=== PATIENT | female | born 1960 ===

== ENCOUNTER 2018-01-05 19:54 | Emergency (ER) | payer MEDICARE, MEDICAID ==
[2018-01-05 19:54] VITALS: BMI 36.7
[2018-01-05 20:03] VITALS: O2SAT 98
--- NOTE | 2018-01-05 20:15 | ED PDOC ---
HPI: General Adult Time Seen by Provider: 01/05/18 20:12 Chief Complaint (Nursing): Flu-like Symptoms Chief Complaint (Provider): flu like symptoms History Per: Patient, Family (Patient's daughter at bedside is translating for patient in Chilean) Additional Complaint(s): 57-year-old female presents with fever, chills, body aches and cough that started yesterday. Patient returned from [place] 2 days ago. 3 of her grandchildren are being treated for the flu at present. Patient denies chest pain or shortness of breath. She took TheraFlu earlier which did not help. PMD: Geovanna Rae MD Past Medical History Reviewed: Historical Data, Nursing Documentation, Vital Signs Vital Signs: Last Vital Signs Temp 99 F 01/05/18 20:00 Pulse 88 01/05/18 20:00 Resp 18 01/05/18 20:00 BP 131/81 01/05/18 20:00 Pulse Ox 98 01/06/18 00:08 - Medical History PMH: Arthritis, Asthma, Gastritis, HTN, Hypercholesterolemia, Hypothyroidism, Kidney Stones - Surgical History Surgical History: Appendectomy, Cholecystectomy, Endoscopy Other surgeries: nephrectomy - Family History Family History: States: No Known Family Hx - Living Arrangements Living Arrangements: With Family - Social History Current smoker - smoking cessation education provided: No Alcohol: None Drugs: Denies - Home Medications Home Medications: Ambulatory Orders Medication Instructions Recorded Albuterol Sulfate [Albuterol 0.09 mg IH PRN PRN 08/12/14 Sulfate Hfa] Amlodipine Besylate 5 mg PO DAILY 08/12/14 Baclofen 10 mg PO DAILY 08/12/14 Dicyclomine [Bentyl] 10 mg PO PRN PRN 08/12/14 Gabapentin [Neurontin] 300 mg PO DAILY 08/12/14 Meloxicam 15 mg PO DAILY 08/12/14 Mometasone [Asmanex Twisthaler] 1 puff IH PRN PRN 08/12/14 Montelukast Sodium 10 mg PO DAILY 08/12/14 Omeprazole [Omeprazole D/R] 20 mg PO DAILY 08/12/14 Oxybutynin Chloride [Oxybutynin ER] 10 mg PO DAILY 08/12/14 Pravastatin Sodium 20 mg PO DAILY 08/12/14 Levothyroxine [Synthroid] 0.075 mg PO DAILY 08/14/14 oxyCODONE/Acetaminophen [Percocet 1 ea PO Q6 PRN #20 tab 10/21/14 5/325 mg Tab] Famotidine [Pepcid] 20 mg PO BID #28 tab 04/29/15 Ondansetron ODT [Zofran ODT] 4 mg PO QID #20 odt 04/29/15 Meclizine [Antivert] 12.5 mg PO TID PRN #15 tab 06/27/16 Ibuprofen [Motrin] 600 mg PO TID PRN #30 tab 12/28/16 Albuterol HFA [Ventolin HFA 90 1 puff IH ASDIR #1 unit 01/05/18 mcg/actuation (8 g)] Azithromycin [Zithromax] 250 mg PO DAILY #6 tab 01/05/18 Benzonatate 200 mg PO TID PRN #20 capsule 01/05/18 Oseltamivir Phosphate [Tamiflu] 75 mg PO BID #9 capsule 01/05/18 - Allergies Allergies/Adverse Reactions: Allergies Allergy/AdvReac Type Severity Reaction Status Date / Time pineapple Allergy ANAPHYLAXIS Verified 01/05/18 19:59 Review of Systems ROS Statement: Except As Marked, All Systems Reviewed And Found Negative Constitutional: Positive for: Fever, Chills, Other (body aches) Cardiovascular: Negative for: Chest Pain Respiratory: Positive for: Cough. Negative for: Shortness of Breath Gastrointestinal: Negative for: Vomiting, Abdominal Pain, Diarrhea Neurological: Positive for: Headache. Negative for: Dizziness Physical Exam - Reviewed Nursing Documentation Reviewed: Yes Vital Signs Reviewed: Yes - Physical Exam Appears: Positive for: Well, Non-toxic, No Acute Distress Skin: Negative for: Rash Eye Exam: Positive for: Normal appearance ENT: Positive for: Normal ENT Inspection Cardiovascular/Chest: Positive for: Regular Rate, Rhythm Respiratory: Positive for: Normal Breath Sounds, Rhonchi. Negative for: Wheezing, Respiratory Distress Gastrointestinal/Abdominal: Positive for: Soft. Negative for: Tenderness Extremity: Positive for: Normal ROM Neurologic/Psych: Positive for: Alert, Oriented - ECG O2 Sat by Pulse Oximetry: 98 Pulse Ox Interpretation: Normal - Other Rad CXR X-Ray: Interpreted by Me, Viewed By Me X-Ray Interpretation: no acute finding Nebulizer Treatments/Peak Flow - Duonebs Number of Bronchodilator Doses given?: 1 (duoneb) Medical Decision Making Medical Decision Makin57 year old with flu like symptoms Plan: CXR PO tylenol and motrin PO tamiflu initial dose Fluid bolus Patient states she feels better after meds given in ED. Patient given prescriptions for Tamiflu, Zithromax, Tessalon Perles and Ventolin inhaler. Advised NSAIDs for body aches and fever. Advised fluids, rest and follow-up with primary doctor in 2-3 days. Disposition - Clinical Impression Clinical Impression: Influenza-like symptoms, Upper respiratory infection - Patient ED Disposition Is Patient to be Admitted: No Counseled Patient/Family Regarding: Studies Performed, Diagnosis, Need For Followup, Rx Given - Disposition Referrals: Geovanna Rae MD [Family Provider] - Disposition: Routine/Home Disposition Time: 21:41 Condition: STABLE Additional Instructions: TAKE RX MEDS DIRECTED TYLENOL EVERY 4 HRS AND MOTRIN EVERY 6 HRS FOR FEVER AND BODY ACHES DRINK PLENTY OF FLUIDS AND GET PLENTY OF REST FOLLOW UP IN 2-3 DAYS WITH PRIMARY CARE DOCTOR Prescriptions: Albuterol HFA [Ventolin HFA 90 mcg/actuation (8 g)] 1 puff IH ASDIR #1 unit Azithromycin [Zithromax] 250 mg PO DAILY #6 tab Benzonatate 200 mg PO TID PRN #20 capsule PRN Reason: Cough Oseltamivir Phosphate [Tamiflu] 75 mg PO BID #9 capsule Instructions: Viral Upper Respiratory Infection, Adult (DC), Bacterial Upper Respiratory Infection, Adult Forms: [employer] (Chilean) Print Language: ALBANIAN
[2018-01-05] MEDS ORDERED: Albuterol-Ipratrop 3 mg / 0.5 (3 ml) UD INH STA (20:40)
[2018-01-05] MEDS ORDERED: Sodium Chloride 0.9% 1,000 ML IV STA (21:42)
[2018-01-06 00:09] VITALS: BP 122/81; PULSE 86; RESP 20; TEMP 99.7
--- NOTE | 2018-01-06 11:14 | RAD ---
HISTORY: cough COMPARISON: No prior. TECHNIQUE: Chest PA and lateral FINDINGS: LUNGS: Mild bibasilar atelectasis likely due to poor inspiration with low lung volumes. . There is a 4 mm rounded nodular density left lateral mid to lower lung field seen overlying the left anterior 4th rib and left posterior 7th rib. Another small nodular density measuring approximately 3 mm left upper lung field which could represent a granuloma or possibly vessel on end artifact at the. Followup nonemergent CT scan of the chest recommended further evaluation. PLEURA: No significant pleural effusion identified. No pneumothorax apparent. CARDIOVASCULAR: Heart size is upper limits of normal. OSSEOUS STRUCTURES: No significant abnormalities. VISUALIZED UPPER ABDOMEN: Metallic surgical clips again seen in the upper abdomen bilaterally. Clinical correlation with surgical history. OTHER FINDINGS: None. IMPRESSION: Mild bibasilar atelectasis. There is a small nodular density left lateral lower lung zone and another nodular density left upper lobe as above. Recommend follow-up nonemergent CT scan chest further evaluation of the small nodules Note this report was placed in PA review folder for followup
== END 2018-01-06 00:10 | disposition home or self-care (01) ==
LOC: H.ER 19:54
DX: J11.1 Influenza due to unidentified influenza virus with other respiratory manifestations (principal); J06.9 Acute upper respiratory infection, unspecified; E03.9 Hypothyroidism, unspecified; E78.00 Pure hypercholesterolemia, unspecified; I10 Essential (primary) hypertension; J45.909 Unspecified asthma, uncomplicated
CPT/HCPCS: 71046; 94640; 99283; J7040

== ENCOUNTER 2018-12-15 19:41 | Emergency (ER) | payer MEDICARE, MEDICAID ==
[2018-12-15 19:42] VITALS: BMI 36.7
[2018-12-15] MEDS ORDERED: Iohexol 240 (50 ml) PO STA (20:13)
[2018-12-15] MEDS ORDERED: Sodium Chloride 0.9% 1,000 ML IV STA (20:15)
[2018-12-15] MEDS ORDERED: Iohexol 240 (50 ml) ONE (20:21)
--- NOTE | 2018-12-15 21:09 | ED PDOC ---
HPI: Abdomen Time Seen by Provider: 12/15/18 19:51 Chief Complaint (Nursing): Abdominal Pain Chief Complaint (Provider): Abdominal Pain History Per: Patient History/Exam Limitations: no limitations Onset/Duration Of Symptoms: Days (today) Additional Complaint(s): 58 y/o female with history of hypertension, gastritis, hypercholesterolemia, and multiple abdominal surgeries, presents to the ED complaining of vomiting onset earlier today. Patient reports she had abdominal pain this morning and developed intractable non-bloody non-bilious vomiting associated with body aches and chills. Patient denies diarrhea. She is also reporting dysuria and frequency for the past x3 days. No other medical complaints. Past Medical History Reviewed: Historical Data, Nursing Documentation, Vital Signs Vital Signs: Last Vital Signs Temp 97.7 F 12/15/18 19:44 Pulse 75 12/15/18 19:44 Resp BP 114/76 12/15/18 19:44 Pulse Ox 100 12/15/18 19:44 - Medical History PMH: Arthritis, Asthma, Gastritis, Gall Bladder Disease, HTN, Hypercholesterolemia, Hypothyroidism, Kidney Stones - Surgical History Surgical History: Appendectomy, Cholecystectomy, Endoscopy - Family History Family History: States: No Known Family Hx, Unknown Family Hx - Social History Current smoker - smoking cessation education provided: No Alcohol: None - Home Medications Home Medications: Ambulatory Orders Medication Instructions Recorded RX: Albuterol Sulfate [Albuterol 0.09 mg IH PRN PRN 08/12/14 Sulfate Hfa] RX: Amlodipine Besylate 5 mg PO DAILY 08/12/14 RX: Baclofen 10 mg PO DAILY 08/12/14 RX: Dicyclomine [Bentyl] 10 mg PO PRN PRN 08/12/14 RX: Gabapentin [Neurontin] 300 mg PO DAILY 08/12/14 RX: Meloxicam 15 mg PO DAILY 08/12/14 RX: Mometasone [Asmanex Twisthaler] 1 puff IH PRN PRN 08/12/14 RX: Montelukast Sodium 10 mg PO DAILY 08/12/14 RX: Omeprazole [Omeprazole D/R] 20 mg PO DAILY 08/12/14 RX: Oxybutynin Chloride 10 mg PO DAILY 08/12/14 [Oxybutynin ER] RX: Pravastatin Sodium 20 mg PO DAILY 08/12/14 RX: Levothyroxine [Synthroid] 0.075 mg PO DAILY 08/14/14 oxyCODONE/Acetaminophen [Percocet 1 ea PO Q6 PRN #20 tab 10/21/14 5/325 mg Tab] Famotidine [Pepcid] 20 mg PO BID #28 tab 04/29/15 Ondansetron ODT [Zofran ODT] 4 mg PO QID #20 odt 04/29/15 RX: Meclizine [Antivert] 12.5 mg PO TID PRN #15 tab 06/27/16 Ibuprofen [Motrin] 600 mg PO TID PRN #30 tab 12/28/16 Albuterol HFA [Ventolin HFA 90 1 puff IH ASDIR #1 unit 01/05/18 mcg/actuation (8 g)] Azithromycin [Zithromax] 250 mg PO DAILY #6 tab 01/05/18 Oseltamivir Phosphate [Tamiflu] 75 mg PO BID #9 capsule 01/05/18 RX: Benzonatate 200 mg PO TID PRN #20 capsule 01/05/18 - Allergies Allergies/Adverse Reactions: Allergies Allergy/AdvReac Type Severity Reaction Status Date / Time pineapple Allergy ANAPHYLAXIS Verified 01/05/18 19:59 Review of Systems ROS Statement: Except As Marked, All Systems Reviewed And Found Negative (as per HPI otherwise negative) Constitutional: Positive for: Chills, Malaise (body aches) Gastrointestinal: Positive for: Vomiting, Abdominal Pain. Negative for: Diarrhea Genitourinary Female: Positive for: Dysuria, Frequency Physical Exam - Reviewed Nursing Documentation Reviewed: Yes Vital Signs Reviewed: Yes - Physical Exam Appears: Positive for: In Acute Distress (mild painful distress) Head Exam: Positive for: ATRAUMATIC, NORMOCEPHALIC Skin: Positive for: Warm, Dry Eye Exam: Positive for: EOMI, PERRL ENT: Negative for: Pharyngeal Erythema, Tonsillar Exudate Neck: Positive for: Painless ROM, Supple Cardiovascular/Chest: Positive for: Regular Rate, Rhythm. Negative for: Murmur Respiratory: Positive for: Normal Breath Sounds. Negative for: Respiratory Distress Gastrointestinal/Abdominal: Positive for: Bowel Sounds (hypoactive), Tenderness (diffuse). Negative for: Mass, Guarding, Rebound Back: Positive for: Normal Inspection. Negative for: Muscle Spasm Extremity: Positive for: Normal ROM. Negative for: Deformity Lymphatic: Negative for: Adenopathy Neurologic/Psych: Positive for: Alert. Negative for: Motor/Sensory Deficits - Laboratory Results Result Diagrams: 12/15/18 21:20 12/15/18 21:20 - ECG O2 Sat by Pulse Oximetry: 100 (RA) Pulse Ox Interpretation: Normal Medical Decision Making Medical Decision Making: Time: 20:13 Initial Impression: abdominal pain and vomiting Differential included but not limited to obstruction, dehydration, electrolyte abnormality, viral illness Initial Plan: CT Abd pelvis CMP Lactic acid Lipase ED Urine CBC w/ diff IV fluids Omnipaque Pepcid Zofran RNs unable to place IV or obtain labs RIGHT EJ 20g saline lock placed by me under sterile conditions. Labs/blood cultures drawn and flushed easily with 10cc normal saline. Time: Patient was endorsed to Dr. Shena Pepe, pending CT, reassessment and final disposition. Scribe Attestation: Documented by Jaguar Merrill acting as a scribe for Delmis Villavicencio MD. Provider Scribe Attestation: All medical record entries made by the Scribe were at my direction and personally dictated by me. I have reviewed the chart and agree that the record accurately reflects my personal performance of the history, physical exam, medical decision making, and the department course for this patient. I have also personally directed, reviewed, and agree with the discharge instructions and disposition. Disposition - Clinical Impression Clinical Impression: Enteritis - Disposition Disposition: Transfer of Care Disposition Time: 00:00 Condition: IMPROVED Additional Instructions: Follow up with primary medical doctor and telephone sales representative. Return to the emergency department if symptoms return or if you develop new symptoms such as decreased SOB, weakness, or chest pain. Drink more water to stay hydrated while symptoms last. Instructions: Colitis (DC) Forms: [employer] (Mongolian), [employer] (Estonian) Print Language: MAURITIAN
[2018-12-15 21:25] LABS: BASO % 0.2 % (0.0-2.0); EOS % 0.1 % (0.0-4.0); HEMOGLOBIN 12.9 g/dL (12.0-16.0); LYMPH # 0.8 K/uL (1.0-4.3); LYMPH % 12.8 % (20.0-40.0); MEAN CELL VOLUME 78.6 fl (81.0-99.0); MEAN CORPUSCULAR HEMOGLOBIN 25.7 pg (27.0-31.0); MEAN CORPUSCULAR HGB CONC 32.7 g/dL (33.0-37.0); MEAN PLATELET VOLUME 7.9 fl (7.2-11.7); MONO # 0.2 K/uL (0.0-0.8); MONO % 3.6 % (0.0-10.0); NEUT # 5.3 K/uL (1.8-7.0); NEUT % 83.3 % (50.0-75.0); RBC 5.03 Mil/uL (3.80-5.20); RED CELL DISTRIBUTION WIDTH 15.7 % (11.5-14.5); WHITE BLOOD COUNT 6.4 K/uL (4.8-10.8)
[2018-12-15 21:34] LABS: ALB/GLOB RATIO 1.3 (1.0-2.1); ALBUMIN 4.5 g/dL (3.5-5.0); ALT/SGPT 50 U/L (9-52); AST/SGOT 39 U/L (14-36); BLOOD UREA NITROGEN 17 mg/dl (7-17); CALCIUM 9.5 mg/dL (8.4-10.2); GFR NON-AFRICAN AMERICAN > 60; LIPASE 137 U/L (23-300)
[2018-12-15 23:42] LABS: SQUAMOUS EPITHIAL 1 /hpf (0-5); URINE BILIRUBIN NEGATIVE (NEGATIVE); URINE BLOOD SMALL (NEGATIVE); URINE CLARITY CLEAR (Clear); URINE COLOR STRAW (YELLOW); URINE GLUCOSE (UA) NEG (NEGATIVE); URINE LEUKOCYTE ESTERASE NEG Leu/uL (Negative); URINE PROTEIN NEGATIVE (NEGATIVE); URINE UROBILINOGEN 0.2-1.0 mg/dL (0.2-1.0)
--- NOTE | 2018-12-15 23:48 | ED PDOC ---
- Laboratory Results Result Diagrams: 12/15/18 21:20 12/15/18 21:20 Lab Results: Total Bilirubin 0.4 mg/dl (0.2-1.3) 12/15/18 21:20 AST 39 U/L (14-36) H 12/15/18 21:20 ALT 50 U/L (9-52) 12/15/18 21:20 Alkaline Phosphatase 75 U/L (38-126) 12/15/18 21:20 Total Protein 7.9 G/DL (6.3-8.2) 12/15/18 21:20 Albumin 4.5 g/dL (3.5-5.0) 12/15/18 21:20 Globulin 3.4 gm/dL (2.2-3.9) 12/15/18 21:20 Albumin/Globulin Ratio 1.3 (1.0-2.1) 12/15/18 21:20 Lipase 137 U/L (23-300) 12/15/18 21:20 - ECG O2 Sat by Pulse Oximetry: 100 (RA) Medical Decision Making Medical Decision Making: Time: 0000 Patient care was endorsed by Dr. Delmis Villavicencio, pending CT, PO challenge, UA, reassessment and final disposition. Patient will most likely be discharged home. Time: 0148 CT FINDINGS: LUNG BASES: There is mild atelectasis at the lung bases, right greater than left. LIVER: Unremarkable. GALLBLADDER AND BILE DUCTS: There has been a cholecystectomy. The common bile duct is prominent measuring approximately 10 mm. However, this may be normally post cholecystectomy patient. Please correlate clinically. PANCREAS: There is a 5 mm calcification in the pancreatic head, nonspecific. SPLEEN: Unremarkable. ADRENAL GLANDS: Unremarkable. KIDNEYS, URETERS, AND BLADDER: There has been a left nephrectomy. The right kidney has an unremarkable appearance aside from a sub centimeter hypodensity at the midpole which is too small to adequately characterize. No right hydronephrosis. STOMACH AND BOWEL: Stomach is predominately decompressed. There are postsurgical changes of the stomach. There is mild constipation in the colon. No evidence for small bowel obstruction. APPENDIX: The appendix is surgically absent. PERITONEUM: No free fluid. No free air. LYMPH NODES: No lymphadenopathy is evident. REPRODUCTIVE: Unremarkable as visualized. VASCULATURE: No evidence of abdominal aortic aneurysm. BONES: There are mild multilevel degenerative spine changes. IMPRESSION: 1. The common bile duct is prominent measuring approximately 10 mm. However, this may be normal in a post cholecystectomy patient. Please correlate clinically. 2. Status post left nephrectomy. 3. Stomach is predominately decompressed. There are postsurgical changes of the stomach. 4. There is mild constipation in the colon. 5. Additional an incidental findings as described, please see comments. Time: 226 Patient failed PO challenge and will be given more zofran. -- Zofran 4 mg IVP Time: 614 Patient's symptoms have improved and is tolerating PO. Patient will follow up with gastroenterology and PMD. Scribe Attestation: Documented by Dano Andrea, acting as a scribe for Shena Pepe MD. Provider Scribe Attestation: All medical record entries made by the Scribe were at my direction and personally dictated by me. I have reviewed the chart and agree that the record accurately reflects my personal performance of the history, physical exam, medical decision making, and the department course for this patient. I have also personally directed, reviewed, and agree with the discharge instructions and disposition. Disposition - Clinical Impression Clinical Impression: Enteritis - Disposition Referrals: Geraldo Barnett MD, PhD [Staff Provider] - Condition: IMPROVED Additional Instructions: Follow up with primary medical doctor and drivers license examiner. Return to the emergency department if symptoms return or if you develop new symptoms such as decreased SOB, weakness, or chest pain. Drink more water to stay hydrated while symptoms last. Instructions: Colitis (DC) Forms: [employer] (Persian), [employer] (Kazakh) Print Language: SOUTH AFRICAN
[2018-12-16] MEDS ORDERED: Iodixanol 320 MG/ML 100 ML BOTTLE IV ONE (00:37)
--- NOTE | 2018-12-16 04:17 | CP.PCM.CON ---
<Best Antoine - Last Filed: 12/16/18 08:39> History of Present Illness - History of Present Illness History of Present Illness: 58F PMHx HTN, asthma, pre diabetes, obesity, presents to [facility] ED with complaints of nausea/vomiting. Patient states she's been having n/v since Monday. Patient states nausea was worse today. Reports developing dizziness, headache, nausea/vomiting, diarrhea, mild abdominal pain, and palpitations about 30 minutes after consuming food. Patient has history of laparoscopic sleeve gastrectomy. She states shes was having soup with spaghetti and carbohydrate rich foods. PMH: as stated above PSurgHx: laparoscopic sleeve gastrectomy, laparoscopic cholecystectomy, left nephrectomy, b/l knee replacements Allergies: Pineapple Fam Hx: non-contributory Review of Systems - Review of Systems Review of Systems: 10 pt ROS negative, except as stated in HPI Past Patient History - Past Medical History & Family History Past Medical History?: Yes - Past Social History Alcohol: None - CARDIAC Hx Hypercholesterolemia: Yes Hx Hypertension: Yes - PULMONARY Hx Asthma: Yes - NEUROLOGICAL Hx Neurological Disorder: No - HEENT Hx HEENT Problems: Yes (GLASSES) - RENAL Hx Kidney Stones: Yes - ENDOCRINE/METABOLIC Hx Hypothyroidism: Yes - HEMATOLOGICAL/ONCOLOGICAL Hx Blood Disorders: No - INTEGUMENTARY Hx Dermatological Problems: No - MUSCULOSKELETAL/RHEUMATOLOGICAL Hx Arthritis: Yes - GASTROINTESTINAL Hx Gall Bladder Disease: Yes Hx Gastritis: Yes - GENITOURINARY/GYNECOLOGICAL Hx Genitourinary Disorders: No - PSYCHIATRIC Hx Psychophysiologic Disorder: No Hx Substance Use: No - SURGICAL HISTORY Hx Appendectomy: Yes Hx Cholecystectomy: Yes - ANESTHESIA Hx Anesthesia: Yes Hx Anesthesia Reactions: Yes (n/v) Hx Malignant Hyperthermia: No Meds Allergies/Adverse Reactions: Allergies Allergy/AdvReac Type Severity Reaction Status Date / Time pineapple Allergy ANAPHYLAXIS Verified 01/05/18 19:59 Physical Exam - Constitutional Appears: Non-toxic, No Acute Distress - Head Exam Head Exam: NORMOCEPHALIC - Eye Exam Eye Exam: EOMI, Normal appearance - ENT Exam ENT Exam: Mucous Membranes Moist - Respiratory Exam Respiratory Exam: NORMAL BREATHING PATTERN - Cardiovascular Exam Cardiovascular Exam: +S1, +S2 - GI/Abdominal Exam GI & Abdominal Exam: Soft. absent: Distended, Firm, Guarding, Rebound, Tenderness - Neurological Exam Neurological exam: Alert, Oriented x3 - Psychiatric Exam Psychiatric exam: Normal Mood - Skin Skin Exam: Dry, Intact, Normal Color Results - Vital Signs Recent Vital Signs: Last Vital Signs Temp 97.7 F 12/15/18 19:44 Pulse 75 12/15/18 19:44 Resp BP 114/76 12/15/18 19:44 Pulse Ox 100 12/16/18 02:28 - Labs Result Diagrams: 12/15/18 21:20 12/15/18 21:20 Labs: Laboratory Results - last 24 hr 12/15/18 12/15/18 12/15/18 21:20 21:20 21:20 WBC 6.4 RBC 5.03 Hgb 12.9 Hct 39.5 MCV 78.6 L MCH 25.7 L MCHC 32.7 L RDW 15.7 H Plt Count 202 MPV 7.9 Neut % (Auto) 83.3 H Lymph % (Auto) 12.8 L [place] % (Auto) 3.6 Eos % (Auto) 0.1 Baso % (Auto) 0.2 Neut # (Auto) 5.3 Lymph # (Auto) 0.8 L [place] # (Auto) 0.2 Eos # (Auto) 0.0 Baso # (Auto) 0.0 Sodium 140 Potassium 4.1 Chloride 103 Carbon Dioxide 24 Anion Gap 17 BUN 17 Creatinine 0.7 Est GFR ( Amer) > 60 Est GFR (Non-Af Amer) > 60 Random Glucose 122 H Lactic Acid 1.1 Calcium 9.5 Total Bilirubin 0.4 AST 39 H ALT 50 Alkaline Phosphatase 75 Total Protein 7.9 Albumin 4.5 Globulin 3.4 Albumin/Globulin Ratio 1.3 Lipase 137 Urine Color Urine Clarity Urine pH Ur Specific [place] Urine Protein Urine Glucose (UA) Urine Ketones Urine Blood Urine Nitrate Urine Bilirubin Urine Urobilinogen Ur Leukocyte Esterase Urine RBC (Auto) Urine Microscopic WBC Ur Squamous Epith Cells 12/15/18 23:20 WBC RBC Hgb Hct MCV MCH MCHC RDW Plt Count MPV Neut % (Auto) Lymph % (Auto) [place] % (Auto) Eos % (Auto) Baso % (Auto) Neut # (Auto) Lymph # (Auto) [place] # (Auto) Eos # (Auto) Baso # (Auto) Sodium Potassium Chloride Carbon Dioxide Anion Gap BUN Creatinine Est GFR ( Amer) Est GFR (Non-Af Amer) Random Glucose Lactic Acid Calcium Total Bilirubin AST ALT Alkaline Phosphatase Total Protein Albumin Globulin Albumin/Globulin Ratio Lipase Urine Color Straw Urine Clarity Clear Urine pH 7.0 Ur Specific [place] 1.006 Urine Protein Negative Urine Glucose (UA) Neg Urine Ketones Trace Urine Blood Small Urine Nitrate Negative Urine Bilirubin Negative Urine Urobilinogen 0.2-1.0 Ur Leukocyte Esterase Neg Urine RBC (Auto) 2 Urine Microscopic WBC 1 Ur Squamous Epith Cells 1 - Imaging and Cardiology CT scan - abdomen Status: Image reviewed by me, Report reviewed by me Assessment & Plan - Assessment and Plan (Free Text) Assessment: 58F with nausea, vomiting, 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 Avoid complex carbohydrates, sugary drinks. -Anti-emetic prn -Further recs per Dr. Martínez Muro PGY3 <Vik Soliz B - Last Filed: 12/16/18 19:59> Results - Vital Signs Recent Vital Signs: Last Vital Signs Temp 98.4 F 12/16/18 05:50 Pulse 70 12/16/18 05:50 Resp 16 12/16/18 05:50 BP 103/59 L 12/16/18 05:50 Pulse Ox 100 12/16/18 17:53 - Labs Result Diagrams: 12/15/18 21:20 12/15/18 21:20 Labs: Laboratory Results - last 24 hr 12/15/18 12/15/18 12/15/18 21:20 21:20 21:20 WBC 6.4 RBC 5.03 Hgb 12.9 Hct 39.5 MCV 78.6 L MCH 25.7 L MCHC 32.7 L RDW 15.7 H Plt Count 202 MPV 7.9 Neut % (Auto) 83.3 H Lymph % (Auto) 12.8 L [place] % (Auto) 3.6 Eos % (Auto) 0.1 Baso % (Auto) 0.2 Neut # (Auto) 5.3 Lymph # (Auto) 0.8 L [place] # (Auto) 0.2 Eos # (Auto) 0.0 Baso # (Auto) 0.0 Sodium 140 Potassium 4.1 Chloride 103 Carbon Dioxide 24 Anion Gap 17 BUN 17 Creatinine 0.7 Est GFR ( Amer) > 60 Est GFR (Non-Af Amer) > 60 Random Glucose 122 H Lactic Acid 1.1 Calcium 9.5 Total Bilirubin 0.4 AST 39 H ALT 50 Alkaline Phosphatase 75 Total Protein 7.9 Albumin 4.5 Globulin 3.4 Albumin/Globulin Ratio 1.3 Lipase 137 Urine Color Urine Clarity Urine pH Ur Specific [place] Urine Protein Urine Glucose (UA) Urine Ketones Urine Blood Urine Nitrate Urine Bilirubin Urine Urobilinogen Ur Leukocyte Esterase Urine RBC (Auto) Urine Microscopic WBC Ur Squamous Epith Cells 12/15/18 23:20 WBC RBC Hgb Hct MCV MCH MCHC RDW Plt Count MPV Neut % (Auto) Lymph % (Auto) [place] % (Auto) Eos % (Auto) Baso % (Auto) Neut # (Auto) Lymph # (Auto) [place] # (Auto) Eos # (Auto) Baso # (Auto) Sodium Potassium Chloride Carbon Dioxide Anion Gap BUN Creatinine Est GFR ( Amer) Est GFR (Non-Af Amer) Random Glucose Lactic Acid Calcium Total Bilirubin AST ALT Alkaline Phosphatase Total Protein Albumin Globulin Albumin/Globulin Ratio Lipase Urine Color Straw Urine Clarity Clear Urine pH 7.0 Ur Specific [place] 1.006 Urine Protein Negative Urine Glucose (UA) Neg Urine Ketones Trace Urine Blood Small Urine Nitrate Negative Urine Bilirubin Negative Urine Urobilinogen 0.2-1.0 Ur Leukocyte Esterase Neg Urine RBC (Auto) 2 Urine Microscopic WBC 1 Ur Squamous Epith Cells 1 Attending/Attestation - Attestation I have fully participated in the care of the patient.: Yes I have reviewed all pertinent clinical information: Yes Notes (Text): Pt with vomiting and nausea s/p Gastric sleeve F.u with Bariatric surgeon as out pt Plan d.w primary team in detail f.u prn
[2018-12-16 05:53] VITALS: RESP 16
[2018-12-16 06:24] VITALS: O2SAT 100
[2018-12-16 06:33] VITALS: BP 103/59; PULSE 70; TEMP 98.4
--- NOTE | 2018-12-16 10:54 | CT ---
Date of service: 12/16/2018 PROCEDURE: CT Abdomen and Pelvis with contrast HISTORY: abd pain vomiting h/o multiple abdominal surgeries COMPARISON: CT scan of the abdomen pelvis dated 05/26/2013 TECHNIQUE: Contrast dose: 50 mL Visipaque 320 Radiation dose: Total exam DLP = 392.07 mGy-cm. This CT exam was performed using one or more of the following dose reduction techniques: Automated exposure control, adjustment of the mA and/or kV according to patient size, and/or use of iterative reconstruction technique. FINDINGS: LOWER THORAX: Unremarkable. LIVER: Unremarkable. No gross lesion or ductal dilatation. GALLBLADDER AND BILE DUCTS: Prior cholecystectomy. PANCREAS: Unremarkable. No gross lesion or ductal dilatation. SPLEEN: Unremarkable. ADRENALS: Unremarkable. No mass. KIDNEYS AND URETERS: Prior left nephrectomy. No hydronephrosis. No solid mass. VASCULATURE: Unremarkable. No aortic aneurysm. No aortic atherosclerotic calcification or mural plaque present. BOWEL: Small hiatal hernia. Prior gastric sleeve surgery. No obstruction. No gross mural thickening. APPENDIX: No findings to suggest acute appendicitis. PERITONEUM: Unremarkable. No free fluid. No free air. LYMPH NODES: Unremarkable. No enlarged lymph nodes. BLADDER: Unremarkable. REPRODUCTIVE: Unremarkable. BONES: Heterotopic ossification adjacent to the left greater trochanter. Degenerative changes. No acute fracture. OTHER FINDINGS: None. IMPRESSION: No acute abdominal pelvic pathology. Stable findings as above.
--- NOTE | 2018-12-18 06:19 | CARD ---
APPROVED REPORT Date of service: 12/15/2018 EKG Measurement Heart [id number] <Conclusion> Normal sinus rhythm Incomplete right bundle branch block Borderline ECG
== END 2018-12-16 06:25 | disposition home or self-care (01) ==
LOC: H.ER 19:41
DX: K52.9 Noninfective gastroenteritis and colitis, unspecified (principal); K91.1 Postgastric surgery syndromes; R73.03 Prediabetes; Z96.653 Presence of artificial knee joint, bilateral; E03.9 Hypothyroidism, unspecified; E66.9 Obesity, unspecified; E78.00 Pure hypercholesterolemia, unspecified; I10 Essential (primary) hypertension; K59.00 Constipation, unspecified
CPT/HCPCS: 74177; 80053; 81003; 83605; 83690; 85025; 87086; 96361; 96374; 96375; 96376; 99284; J2405; J2765; J7030; Q9966; Q9967